=== PATIENT | male | born 1960 ===

== ENCOUNTER 2017-11-01 13:40 | Day surgery (SDC) | payer OTHER | END 2017-11-01 22:50 | disposition home or self-care (01) | LOC: RAD 13:40 → MRI 14:00 → RAD 14:00 | PROC: BP39YZZ Magnetic Resonance Imaging (MRI) of Left Shoulder using Other Contrast (ICD-10-PCS; principal; 2017-11-01) | PROC: BP1 Imaging, Non-Axial Upper Bones, Fluoroscopy (ICD-10-PCS; principal; 2017-11-01) | DX: M19.012 Primary osteoarthritis, left shoulder (principal); S43.492A Other sprain of left shoulder joint, initial encounter | CPT/HCPCS: 23350; 73222; 77002; A9577; Q9967 ==